=== PATIENT | male | born 1990 | race Caucasian/White ===

== ENCOUNTER 2018-03-23 19:53 | Emergency (ER) | payer OTHER ==
[2018-03-23] MEDS ORDERED: Sulfamethox/Trimethoprim DS 800/160* TAB PO ONE (22:46)
--- NOTE | 2018-03-23 22:48 | ED ---
Skin Complaint - HPI Summary HPI Summary: 27 male presents with lesions to right khan for the past 5 days. He states has been getting more redder and larger. He states he did get some pus drainage from the area. He states it started as an ingrown hair. He has never had this before. He denies any history of MRSA. No fevers. He is not diabetic. No medical conditions. Does not have a primary. - History of Current Complaint Chief Complaint: EDSoftTissueLowExtr Time Seen by Provider: 03/23/18 20:32 Stated Complaint: RT LEG INJURY/PAIN Pain Intensity: 5 - Allergy/Home Medications Allergies/Adverse Reactions: Allergies Allergy/AdvReac Type Severity Reaction Status Date / Time No Known Allergies Allergy Verified 03/23/18 19:56 PMH/Surg Hx/FS Hx/Imm Hx Endocrine/Hematology History: Denies: Hx Anticoagulant Therapy Cardiovascular History: Denies: Hx Myocardial Infarction Infectious Disease History: No Infectious Disease History: Denies: Traveled Outside the [place] in Last 30 Days - Family History Known Family History: Negative: Diabetes - Social History Alcohol Use: Occasionally Substance Use Type: Reports: Marijuana Smoking Status (MU): Never Smoked Tobacco Review of Systems Negative: Fever Negative: Chest Pain Negative: Shortness Of Breath Positive: Rash All Other Systems Reviewed And Are Negative: Yes Physical Exam Triage Information Reviewed: Yes Vital Signs On Initial Exam: Initial Vitals Temp Pulse Resp BP Pulse Ox 99.3 F 88 18 120/67 96 03/23/18 19:56 03/23/18 19:56 03/23/18 19:56 03/23/18 19:56 03/23/18 19:56 Vital Signs Reviewed: Yes Appearance: Positive: Well-Appearing Skin: Positive: Warm, Dry, Other - 3 cm x 3 cm area of edema and erythema with minimal fluctuation on right khan Head/Face: Positive: Normal Head/Face Inspection Eyes: Positive: Normal, Conjunctiva Clear ENT: Positive: Pharynx normal Respiratory/Lung Sounds: Positive: Clear to Auscultation, Breath Sounds Present Cardiovascular: Positive: Normal, RRR Musculoskeletal: Positive: Strength/ROM Intact - Right leg, Other - good pulses Neurological: Positive: Normal Psychiatric: Positive: Normal Procedures - Incision and Drainage right khan Site: right khan Anesthesia: Digital Instrument(s): Scalpel Diagnostics - Vital Signs Vital Signs Temp Pulse Resp BP Pulse Ox 03/23/18 19:56 99.3 F 88 18 120/67 96 - Laboratory Lab Statement: Any lab studies that have been ordered have been reviewed, and results considered in the medical decision making process. Course/Dx - Course Course Of Treatment: 27 male presents with lesions to right khan for the past 5 days. He states has been getting more redder and larger. He states he did get some pus drainage from the area. He states it started as an ingrown hair. He has never had this before. He denies any history of MRSA. No fevers. He is not diabetic. No medical conditions. Does not have a primary. On exam has a 3 cm x 3 cm abscess of right khan. I&D got minimal pus. We'll place on Bactrim. Patient understands and agrees with plan. - Differential Diagnoses - Skin Complaint Differential Diagnoses: Abscess, Cellulitis, Contact Dermatitis - Diagnoses Provider Diagnoses: Abscess Discharge - Sign-Out/Discharge Documenting (check all that apply): Patient Departure - Discharge Plan Condition: Good Disposition: HOME Prescriptions: Ibuprofen TAB* [Motrin TAB* 800 MG] 800 mg PO Q6H #20 tab Sulfamethox/Trimethoprim DS* [Bactrim DS 800/160 TAB*] 1 tab PO BID #19 tab Patient Education Materials: Abscess (ED) Referrals: No Primary Care Phys,NOPCP [Primary Care Provider] - Additional Instructions: Take antibiotic twice a day for 10 days, first dose given in ED Apply warm compresses to area Take ibuprofen or Tylenol for pain every 6 hours Return to ED if develop fever, area of redness spreads, or any new or worsening symptoms - Billing Disposition and Condition Condition: GOOD Disposition: Home
[2018-03-23 23:04] VITALS: BP 109/64
--- NOTE | 2018-03-24 07:08 | PN ---
Progress Note - Progress Note Date of Service: 03/23/18 Note: Pt. seen in ER 03/23 for an abscess. Wound culture today is growing MRSA. Pt. started on Bactrim which should cover MRSA. No change in treatment needed at this time.
== END 2018-03-23 23:03 | disposition home or self-care (01) ==
LOC: ED 19:53
DX: L02.415 Cutaneous abscess of right lower limb (principal)
CPT/HCPCS: 10060; 87070; 87077; 87186; 87205; 87640; 87641; 99282; A9270-GY